=== PATIENT | female | born 1960 | race Hispanic/Latino ===

== ENCOUNTER → 2018-04-04 | Outpatient (CLI) | payer OTHER | END | disposition home or self-care (01) | LOC: RAH 14:24 | PROVIDERS: ATTEND Internal Medicine | DX: Z12.31 Encounter for screening mammogram for malignant neoplasm of breast (principal) | CPT/HCPCS: 77067 ==

== ENCOUNTER → 2019-11-20 | Outpatient (CLI) | payer BC | END | disposition home or self-care (01) | LOC: RAH 12:13 | PROVIDERS: ATTEND Obstetrics & Gynecology | DX: Z12.31 Encounter for screening mammogram for malignant neoplasm of breast (principal) | CPT/HCPCS: 77067 ==

== ENCOUNTER → 2021-05-19 | Outpatient (CLI) | payer BC | END | disposition home or self-care (01) | LOC: RAH 15:55 | PROVIDERS: ATTEND Obstetrics & Gynecology | DX: Z12.31 Encounter for screening mammogram for malignant neoplasm of breast (principal); Z00.01 Encounter for general adult medical examination with abnormal findings | CPT/HCPCS: 77067 ==

== ENCOUNTER → 2023-09-20 | Outpatient (CLI) | payer BC | END | disposition home or self-care (01) | LOC: RAH 10:33 | PROVIDERS: ATTEND Internal Medicine | DX: Z12.31 Encounter for screening mammogram for malignant neoplasm of breast (principal) | CPT/HCPCS: 77067 ==

== ENCOUNTER 2025-04-26 01:45 | Emergency (ER) | payer BC ==
[~2025-04-26] VITALS: Ht 160 cm; Wt 81.2 kg
--- NOTE | 2025-04-26 01:54 | NUR ---
REPORT TO SHIVAM COYNE
[2025-04-26 02:30] LABS: IMMATURE GRANULOCYTE ABSOLUTE 0.01 K/uL (0-1); NUCLEATED RED BLOOD CELLS 0.0 % (0.0-0.19); PLATELET COUNT (AUTO) 234 K/uL (130-400); RED BLOOD CELL COUNT(AUTO) 4.65 MIL/uL (4.00-5.50); RED CELL DISTRIBUTION WIDTH 12.9 % (11.0-15.5); WHITE BLOOD COUNT (AUTO) 7.0 K/uL (4.8-10.8)
--- NOTE | 2025-04-26 02:38 | ERN ---
General Chief Complaint: Shortness of Breath Stated Complaint: SOB, COUGH Time Seen by MD: 01:50 Source: patient History of Present Illness Initial Comments 65-year-old female with cough fever body aches chills and runny nose for the last several days. She was seen by her primary care physician early this week and given a prescription for cefdinir. But her symptoms did not improve. In addition patient states that when she urinates it lainez. Allergies: Coded Allergies: No Known Allergies (Unverified Allergy, Unknown, 04/26/25) Past Medical History Past Medical History: Asthma, Renal Disese Past Surgical History: Hysterectomy, Cholecystectomy Constitutional: (+) chills, (+) fever, (+) malaise, (+) weakness, (+) other documentation EENTM: (-) eye pain, (-) blurred vision, (-) tearing, (-) double vision, (-) ear pain, (-) ear discharge, (-) nose pain, (-) nose congestion, (-) throat pain, (-) Throat swelling, (-) mouth pain, (-) tooth pain, (-) mouth swelling, (-) other documentation Respiratory: (+) cough, (+) short of breath, (+) stridor, (+) wheezing Cardiovascular: (-) chest pain, (-) edema, (-) palpitations, (-) syncope, (-) dyspnea on exertion, (-) other documentation Gastrointestinal/Abdominal: (-) nausea, (-) vomiting, (-) diarrhea, (-) abdominal pain, (-) abdominal distention, (-) constipation, (-) rectal bleeding, (-) dark stool/melena, (-) other documentation Genitourinary: (-) vaginal discharge, (-) vaginal bleeding, (-) dysuria, (-) frequency, (-) hematuria, (-) pain, (-) other documentation Musculoskeletal: (-) Neck pain, (-) back pain, (-) Flank Pain, (-) joint pain, (-) joint swelling, (-) muscle pain, (-) muscle stiffness, (-) gout, (-) other documentation Physical Exam General Appearance: (+) mild distress Orientation: (+) alert, (+) oriented x 3 Head/Face Trauma: No Eye: bilateral eye normal inspection, bilateral eye PERRL, bilateral eye EOMI Ear, Nose, Throat: (+) hearing grossly normal, (+) normal ENT inspection, (+) m oist mucous membraine Neck: (+) normal inspection, (+) supple, (+) full range of motion Respiratory: (+) chest non-tender, (+) lungs clear Heart: (+) regular, (+) no gallop Vascular: (+) no edema, (+) normal peripheral pulse, (+) no JVD Gastrointestinal: (+) soft, (+) non-tender, (+) bowel sound present Results Laboratory and Microbiology Lab and Micro Result Laboratory Tests Test 04/26/25 01:58 04/26/25 02:23 04/26/25 03:08 Influenza Type A Antigen Negative For Type A Influenza Type B Antigen Negative For Type B SARS-CoV-2 Antigen (Rapid) PRESUMPTIVE NEGATIVE Group A Streptococcus Rapid negative (NEGATIVE) White Blood Count 7.0 K/uL (4.8-10.8) Red Blood Count 4.65 MIL/uL (4.00-5.50) Hemoglobin 14.2 g/dL (12.0-16.0) Hematocrit 41.8 % (36-48) Mean Corpuscular Volume 89.9 fL (79-99) Mean Corpuscular Hemoglobin 30.5 pg (27.0-33.0) Mean Corpuscular Hemoglobin Concent 34.0 g/dL (32.0-36.0) Red Cell Distribution Width 12.9 % (11.0-15.5) Platelet Count 234 K/uL (130-400) Mean Platelet Volume 10.0 fL (7.5-10.5) Immature Granulocyte % (Auto) 0.1 % (0-1) Neutrophils (%) (Auto) 63.3 % (40.0-77.0) Lymphocytes (%) (Auto) 24.0 % (21.0-51.0) Monocytes (%) (Auto) 10.3 % (3.0-13.0) Eosinophils (%) (Auto) 1.4 % (0.0-8.0) Basophils (%) (Auto) 0.9 % (0.0-5.0) Neutrophils # (Auto) 4.4 K/uL (1.8-7.7) Lymphocytes # (Auto) 1.7 K/uL (1.0-4.8) Monocytes # (Auto) 0.7 K/uL (0.1-1.0) Eosinophils # (Auto) 0.10 K/uL (0.00-0.70) Basophils # (Auto) 0.06 K/uL (0.00-0.20) Absolute Immature Granulocyte (auto 0.01 K/uL (0-1) Nucleated Red Blood Cells 0.0 % (0.0-0.19) Sodium Level 136 mmol/L (136-145) Potassium Level 3.6 mmol/L (3.5-5.1) Chloride Level 100 mmol/L (101-111) L Carbon Dioxide Level 28 mmol/L (21-32) Blood Urea Nitrogen 12 mg/dL (7-18) Creatinine 0.8 mg/dL (0.5-1.0) Glomerular Filtration Rate Calc 82 mL/min (>90) Random Glucose 101 mg/dL (70-105) Total Calcium 8.7 mg/dL (8.5-10.1) Procalcitonin < 0.05 ng/mL (0.05-0.5) L Urine Color COLORLESS (YELLOW) Urine Appearance CLEAR (CLEAR) Urine pH 6.5 (5.0-8.0) Urine Specific [place]im 1.005 (1.001-1.031) Urine Protein NEGATIVE mg/dL (NEGATIVE) Urine Glucose (UA) NEGATIVE mg/dL (NEGATIVE) Urine Ketones NEGATIVE mg/dL (NEGATIVE) Urine Occult Blood NEGATIVE (NEGATIVE) Urine Nitrate NEGATIVE (NEGATIVE) Urine Bilirubin NEGATIVE mg/dL (NEGATIVE) Urine Urobilinogen 0.2 mg/dL (0.2-1.0) Urine Leukocyte Esterase NEGATIVE Hipolito/uL MDM MDM: Differential diagnosis: Bronchitis flu cold pneumonia UTI viral infection with exacerbation of her asthma, doubt bacterial infection because of the cefdinir. Suspect viral or mycoplasma infection instead. I wonder if she has a yeast infection as well I would be surprised if her urine had a bacterial infection given that she has been on cefdinir for the last four days. Rationale: Tests considered and ordered secondary to shared decision making include: Previous outside records reviewed: Old ER visits. Risk of complication and/or morbidity or mortality of patient management: None Medications-Per medication reconciliation Need for hospitalization: Patient does meet criteria for hospitalization. Need for emergency major/minor surgery: No There are no social concerns with this patient. Prescription drug management Prescriptions will include symptomatic care Patient's prior external medical records from other ER visits were reviewed by me as indicated. Prior testing and results from previous visits were reviewed. Prior tests were taken into account with medical decision making and resource utilization, independent historian/historians were used to obtain complete medical history. I independently interpreted the test that were performed, results were reviewed by me and considered findings on radiology if ordered. Patient's CBC is normal. Patient's chemistry panel is also normal except for a low chloride. Her procalcitonin is less than 0.05 ruling out bacterial infections, consistent with four days of cefdinir. UA is negative as well. Nasal swabs are also negative for influenza strep And COVID. The patient's cough was well-controlled with the Tessalon Perles. Patient does feel she can stay well hydrated. I will discharge her home with a prescription for Diflucan for three days for a possible yeast infection. Also five days' course of doxycycline. And Tessalon Perles for symptom control. ED Course Orders Procedure Category Date Status Time 12 Lead Ekg Tracing- EKG 04/26/25 Logged Technical 02:06 Basic Metabolic Panel LAB 04/26/25 Complete 02:06 Cbc With Differential LAB 04/26/25 Complete 02:06 Covid19 (Sars Antigen LAB 04/26/25 Complete Rapid) 02:06 Influenza Type A & B, LAB 04/26/25 Complete Rapid 02:06 Rapid (Group A Strep) LAB 04/26/25 Complete 02:06 Urinalysis Profile LAB 04/26/25 Complete 02:06 Procalcitonin LAB 04/26/25 Complete 02:06 Chest 1vw RAD 04/26/25 Resulted 02:06 Benzonatate 100 Mg PHA 04/26/25 Complete Capsule (Tessalon 100 02:05 Guaifenesin-Dm PHA 04/26/25 Complete 200/20mg 10ml 02:30 Current Medications Medications (Trade) Dose Ordered Sig/Vikki Route PRN Reason Start Time Stop Time Status Last Admin Dose Admin Benzonatate (Tessalon 100mg Caps) 200 mg ONCE STAT PO 04/26/25 02:05 04/26/25 02:13 DC 04/26/25 02:50 Guaifenesin/ Dextromethorphan (RobiTUSSin DM 200/20MG 10ML) 10 ml ONCE ONCE PO 04/26/25 02:30 04/26/25 02:31 DC 04/26/25 02:50 Vital Signs Date Time Temp Pulse Resp B/P (MAP) Pulse Ox O2 Delivery O2 Flow Rate FiO2 04/26/25 03:51 98.8 78 18 145/89 98 Room Air* 0 04/26/25 03:00 98.2 73 18 140/79 98 Room Air* 0 04/26/25 02:00 98.4 72 18 148/85 96 Room Air* 0 04/26/25 01:47 99.9 115 20 164/95 96 Room Air DX & DISP Disposition: Discharge Departure Impression: Primary Impression: Bronchitis Additional Impressions: Viral upper respiratory tract infection, Viral upper respiratory tract infection with cough Condition: Stable Scripts Doxycycline Hyclate (Doxycycline Hyclate) 100 Mg Tablet 1 TAB PO BID for 7 Days, #14 TAB 0 Refills Prov: FIDELIA ALBERTO MD 04/26/25 Fluconazole (Diflucan) 100 Mg Tablet 1 TAB PO DAILY for 3 Days, #3 TAB 0 Refills Prov: FIDELIA ALBERTO MD 04/26/25 Benzonatate (Benzonatate) 200 Mg Capsule 1 CAP PO TID for cough for 10 Days, #30 CAP 0 Refills Prov: FIDELIA ALBERTO MD 04/26/25 Referrals: CAMPOS VICKERS MD (PCP) FIDELIA ALBERTO MD Apr 26, 2025 02:38
[2025-04-26 02:39] LABS: RAPID GROUP A STREP negative (NEGATIVE)
[2025-04-26 02:45] LABS: CREATININE 0.8 mg/dL (0.5-1.0); GLOMERULAR FILTR. RATE CALC 82.0 mL/min (>90); GLUCOSE,RANDOM 101.0 mg/dL (70-105); SODIUM SERUM 136.0 mmol/L (136-145); UREA NITROGEN, BLOOD 12.0 mg/dL (7-18)
[2025-04-26 02:49] LABS: COVID19 (SARS ANTIGEN RAPID) PRESUMPTIVE NEGATIVE (NEGATIVE)
[2025-04-26 02:50] LABS: INFLUENZA TYPE A Negative For Type A (NEGATIVE); INFLUENZA TYPE B Negative For Type B (NEGATIVE)
[2025-04-26] MEDS: guaiFENesin-DM 200/20MG 10ML PO ONE (02:50)
[2025-04-26] MEDS: BENZONATATE 100 MG CAPSULE PO STA (02:50)
--- NOTE | 2025-04-26 03:10 | HMCIMG ---
EXAM: CR Chest, 2 views. CLINICAL HISTORY: Cough. COMPARISON: None. FINDINGS: The lungs show no infiltrate or other acute findings. No pleural effusion or pneumothorax. The cardiomediastinal silhouette is within normal limits. No acute osseous abnormality. IMPRESSION: No acute cardiopulmonary pathology is evident. /[place]
[2025-04-26 03:17] LABS: ADD UA MICROSCOPIC NO; APPEARANCE,URINE CLEAR (CLEAR); GLUCOSE, URINE (UA) NEGATIVE (NEGATIVE); LEUKOCYTE ESTERASE ,URINE NEGATIVE Leu/uL (NEGATIVE); NITRATE,URINE NEGATIVE (NEGATIVE); OCCULT BLOOD,URINE NEGATIVE (NEGATIVE)
[2025-04-26 03:51] VITALS: BP 145/89; PULSE 78; RESP 18; TEMP 98.8; O2SAT 98
[2025-04-26] MEDS ORDERED: BENZ200C53 PO (04:15)
[2025-04-26] MEDS ORDERED: FLUC100T PO (04:15)
[2025-04-26] MEDS ORDERED: DOXY100T2 PO (04:15)
--- NOTE | 2025-04-26 07:22 | EKG ---
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
== END 2025-04-26 04:21 | disposition home or self-care (01) ==
LOC: EDH 01:45
DX: J40 Bronchitis, not specified as acute or chronic (principal); J06.9 Acute upper respiratory infection, unspecified; B97.89 Other viral agents as the cause of diseases classified elsewhere; Z90.49 Acquired absence of other specified parts of digestive tract; Z90.710 Acquired absence of both cervix and uterus; Z20.822 Contact with and (suspected) exposure to COVID-19
CPT/HCPCS: 36415; 71045; 80048; 81003; 84145; 85025; 87426; 87804; 87880; 93005; 99284

== ENCOUNTER → 2025-09-02 | Outpatient (CLI) | payer BC ==
[~2025-09-02] MED LIST: BENZ200C53 PO; DOXY100T2 PO; FLUC100T PO
== END | disposition home or self-care (01) ==
LOC: RAH 10:19
PROVIDERS: ATTEND Internal Medicine
DX: Z12.31 Encounter for screening mammogram for malignant neoplasm of breast (principal)
CPT/HCPCS: 77067